=== PATIENT | female | born 1970 | race Caucasian/White ===

== ENCOUNTER 2018-01-19 15:56 | Outpatient (CLI) | payer BC | END 2018-01-19 15:57 | disposition home or self-care (01) | LOC: BICMAMMO 15:56 | PROVIDERS: ATTEND Obstetrics & Gynecology | DX: Z12.31 Encounter for screening mammogram for malignant neoplasm of breast (principal); Z80.3 Family history of malignant neoplasm of breast | CPT/HCPCS: 77063; 77067 ==

== ENCOUNTER 2019-03-28 18:40 | Emergency (ER) | payer BC ==
--- NOTE | 2019-03-28 19:16 | RAD ---
Left wrist 3 views HISTORY: Fall. Left wrist injury. FINDINGS: Extensively comminuted and moderately impacted fracture of the distal with significant dors al tilt and mild posterior displacement. Minimally displaced sagittally oriented fracture into the articular surface at the base of the radial styloid. Minimally displaced ulnar styloid avulsion. Scap hoid waist is intact. Positive ulnar variance. Mild degenerative changes first carpometacarpal joint. IMPRESSION: Comminuted intra-articular impacted fracture of the distal left radius with dorsal tilt. Associated ulnar styloid avulsion.
[2019-03-28] MEDS ORDERED: Bupivacaine 0.5% 10 ML VIAL ONE (19:25)
[2019-03-28] MEDS ORDERED: Lidocaine 1% w/Epinephrine 1:100K 20 ML VIAL ONE (19:25)
--- NOTE | 2019-03-28 20:54 | RAD ---
2 VIEWS LEFT WRIST: Date: 03/28/19 COMPARISON: 03/28/19. HISTORY: Status post reduction. FINDINGS: 2 views of the left wrist show reduction of the previously seen comminuted fracture of the distal rad ius. Alignment has improved. An ulnar styloid process fracture is also seen. IMPRESSION: Status post reduction of distal radius fracture. POS: [facility]
== END 2019-03-28 21:23 | disposition home or self-care (01) ==
LOC: ERS 18:40
DX: S52.502A Unspecified fracture of the lower end of left radius, initial encounter for closed fracture (principal); W18.30XA Fall on same level, unspecified, initial encounter
CPT/HCPCS: 25600; J2001; J3490

== ENCOUNTER 2019-03-30 15:10 | Observation (INO) | payer BC ==
[2019-03-30] MEDS ORDERED: Fentanyl 100 MCG/2 ML VIAL ONE (21:01)
[2019-03-30] MEDS ORDERED: Ondansetron PF 4 MG/2 ML Vial IV PRN (21:22)
[2019-03-30] MEDS ORDERED: HYDROcodone/Acetaminophen 10/325 mg Tablet PO PRN ×2 (21:22)
[2019-03-30] MEDS ORDERED: Communication Order-Pharmacy FS SCH (21:30)
--- NOTE | 2019-03-30 22:29 | RAD ---
Left wrist 2 views intraoperative fluoroscopy HISTORY: Wrist fracture. FINDINGS: Intraoperative fluoroscopy was provided for internal fixation is performed by Dr. Torres. Spot fluoroscopic images show volar compression plate and multiple screws to transfix the distal radius. Alignment is anatomic. Fluoroscopy time 25.5 seconds.
[2019-03-30] MEDS ORDERED: Ondansetron HCl/PF 4 MG/2 ML Vial IVP PRN (22:38)
[2019-03-30] MEDS ORDERED: Ketorolac Tromethamine 30 MG/ML VIAL IVP PRN (22:38)
[2019-03-30] MEDS ORDERED: Meperidine HCl/PF 25 MG/ML VIAL SLOW IVP PRN (22:38)
[2019-03-30] MEDS ORDERED: Promethazine HCl 25 MG/ML VIAL IM PRN (22:38)
[2019-03-31] MEDS: CEFAZOLIN 2 GM in Premix Bag 1 BAG IVPB SCH ×2 (00:19→05:43)
[2019-03-31 01:03] VITALS: BMI 28.0
[2019-03-31 07:43] VITALS: BP 110/73; TEMP 98.3
--- NOTE | 2019-03-31 12:54 | PRG ---
DATE OF SERVICE: 03/31/2019 Progress note and short stay discharge summary. SUBJECTIVE: The patient did very well overnight. Pain is controlled. She had a restful evening. Block is effective to the left upper extremity. She has no complaints at this time. She is tolerating p.o. OBJECTIVE: VITAL SIGNS: Stable. GENERAL: The patient is awake and alert. She is sitting up in bed. She is pleasant and cooperative. EXTREMITIES: Evaluation of the left upper extremity shows a short-arm volar splint, which is intact. The patient has limited motion in the digits secondary to nerve block. No pain on passive stretch. Capillary refill 2 seconds. Swelling is minimal in the digits. SKIN: Intact and free of rashes or lesions at the splint edges. ASSESSMENT AND PLAN: The patient is status post ORIF, left wrist, postoperative day #1, doing very well. Pain is controlled. The patient is tolerating p.o. and voiding without difficulty. She may be discharged home. She has a prescription for pain medication at home. We will see her in our office in 2 weeks for followup. She will keep her splint clean, dry, and intact until that followup appointment and treat this like a cast. All questions have been answered. Job ID: [id number]
--- NOTE | 2019-04-01 14:21 | OP ---
DATE OF PROCEDURE: 03/30/2019 PREOPERATIVE DIAGNOSIS: Left intra-articular distal radius fracture (greater than three fragments). POSTOPERATIVE DIAGNOSIS: Left intra-articular distal radius fracture (greater than three fragments). SURGICAL PROCEDURE: Open reduction and internal fixation of left distal radius. ANESTHESIA: General. RECONCILIATION ANALYST: None. TOURNIQUET TIME: 47 minutes at 250 mmHg. IMPLANTS: Synthes 2.4 mm variable angle LCP two-column distal radial plate. COMPLICATIONS: None. DRAINS: None. SPECIMEN: None. OUTCOME: Near-anatomic alignment. INDICATIONS FOR PROCEDURE: Ms. Yi is a 48-year-old lady, status post left distal radius fracture as a result of the ground-level fall. She sustained a comminuted distal radius fracture with dorsal angulation and shortening. After discussion with the patient including risks and benefits, we have decided to proceed with open reduction and internal fixation. Written consent has been obtained. I believe all questions have been answered. DESCRIPTION OF PROCEDURE: The patient was brought to the operating room and a time-out performed followed by induction of general anesthesia. Next, she was positioned supine on the OR table and a sterile prep and drape was performed of the left upper extremity. Next, a volar radial skin incision was made after the tourniquet was inflated to 250 mmHg. After skin was sharply incised, dissection was carried down between the interval of the flexor carpi radialis and brachioradialis. Care was taken to protect the radial artery and reflected radially. Dissection was then carried down to the level of the pronator quadratus. This was reflected off the radial border of the distal radius and reflected to the midline. Next, the fracture was reduced to near anatomic alignment as checked both visually as well as under C-arm guidance. A 2.4 mm variable angle LCP two-column distal radial plate was then applied to the volar aspect of the distal radius. Once appropriately positioned, it was held in place provisionally with a 2.7 mm cortical screw proximal to the fracture. Next, a final check with C-arm was performed to ensure reduction of fracture as well as plate positioning. A total of four 2.4 mm locking screws were then placed across the horizontal limb of the plate capturing the distal articular fragment. This was followed by two more 2.7 mm cortical screws proximal to the fracture. Final AP and lateral C-arm images were obtained and then the wound closed after irrigation with bulb syringe. Closure was performed with 0 Vicryl deep, 2-0 Vicryl subcutaneously, and 4-0 nylon for the skin. Xeroform gauze, Webril, and fiberglass splint was applied to the wrist, and then the patient was transferred to recovery room in stable condition. There were no complications. The patient tolerated the procedure well. Job ID: [id number]
== END 2019-03-31 09:58 | disposition home or self-care (01) ==
LOC: SDC 15:10 → T4-B 23:06
PROVIDERS: ADMIT Orthopaedic Surgery; ATTEND Orthopaedic Surgery
PROC: 0PSJ04Z Reposition Left Radius with Internal Fixation Device, Open Approach (ICD-10-PCS; principal; 2019-03-31)
DX: S52.572A Other intraarticular fracture of lower end of left radius, initial encounter for closed fracture (principal); S52.612A Displaced fracture of left ulna styloid process, initial encounter for closed fracture; W01.0XXA Fall on same level from slipping, tripping and stumbling without subsequent striking against object, initial encounter; Z79.899 Other long term (current) drug therapy
CPT/HCPCS: 76000; C1713; G0378; J0690; J3010